=== PATIENT | female | born 1985 | race African-American/Black ===

== ENCOUNTER 2025-02-28 21:07 | Emergency (ER) | payer SELFPAY ==
--- NOTE | ~2025-02-28 | XR_ITS ---
EXAMINATION: XR chest 2V 02/28/2025 21:48 INDICATION: Dizziness PROCEDURE: 2 view chest COMPARISON: No prior studies for comparison. FINDINGS: The lungs are clear. The cardiomediastinal silhouette is within normal limits. There are no pleural effusions. There is no pneumothorax suspected. IMPRESSION: 1: NO ACUTE CARDIOPULMONARY DISEASE. Reviewed, dictated and finalized at location O.
--- NOTE | ~2025-02-28 | CT_ITS ---
EXAMINATION: CT brain wo con DATE: 02/28/2025 21:39 INDICATION: Dizziness. Hypertension. TECHNIQUE: Computed tomography (CT) of the head was performed without intravenous contrast. The dose-length product was 605.33 mGy-cm. COMPARISON: None FINDINGS: Brain parenchymal volume is normal. There are scattered mild periventricular and subcortical white matter changes, most likely related to small vessel ischemic disease (microangiopathy). No ventriculomegaly or midline shift. No acute infarction, hemorrhage, mass or mass effect. Paranasal sinuses and mastoids are pneumatized. No depressed skull fractures. IMPRESSION: 1. No acute intracranial abnormality. Reviewed, dictated and finalized at location O.
[2025-02-28 21:17] VITALS: BP 200/111; PULSE 100; RESP 18; TEMP 36.2; O2SAT 100
--- NOTE | 2025-02-28 21:22 | ECG_ITS ---
Test Date: 2025-02-28 22:26:41 Measurements Intervals [place] Rate: 96 P: 20 CA: 178 QRS: -4 QRSD: 79 T: 23 QT: 351 QTc: 445 Interpretive Statements SINUS RHYTHM POSSIBLE RIGHT VENTRICULAR CONDUCTION DELAY [RSR (QR) IN V1/V2] No previous ECG available for comparison Electronically Signed On 03-01-2025 15:26:03 CDT by Dixon Morse M.D.
--- OUTSIDE RECORDS SUMMARY | 2025-02-28 21:53 | XMS_ITS | Clinical Summary ---
Author Organization [facility] Address [address] [place] [address] Care Team Providers Care Infection Control Manager Name Role Phone Unavailable Primary Care Provider Unavailabl e Source Comments [facility],non-owned Affiliates and Associated Physician Practices is amultiple site organization consisting of ambulatory clinics and hospital sitesin [place], [place], [place] and [place]. This disclosure is being madepursuant to the Care Everywhere program and may not contain all information available regarding this patient. Last updated 18.[facility] Medications * Be aware that medications may not be up to date on this document. Alwaysverify current medications with the patient. No known medications Active Problems No known active problems Social History Tobacco Use Types Packs/Day Years Used Date Smoking Tobacco: Never Smokeless Tobacco: Never Comments No Sex and Gender Information Value Date Recorded Sex Assigned at Not on file Legal Sex Female 1:12 PM CDT Gender Identity Not on file Sexual Orientation Not on file Last Filed Vital Signs Vital Sign Reading Time Taken Comments Blood Pressure 126/80 11/25/2018 10:25 AM CDT Pulse 70 11/25/2018 10:25 AM CDT Temperature 36.9 C (98.5 F) 11/25/2018 10:25 AM CDT Respiratory Rate 17 11/25/2018 10:25 AM CDT Oxygen Saturation 99% 11/25/2018 10:25 AM CDT Inhaled Oxygen Concentration - - Weight 65.8 kg (145 lb) 11/25/2018 10:25 AM CDT Height 170.2 cm (5' 7) 11/25/2018 10:25 AM CDT Body Mass Index 22.71 11/25/2018 10:25 AM CDT Plan of Treatment Health Maintenance Due Date Last Done Comments LIPID TESTING 1984 MAMMOGRAM 1984 HIV SCREENING 1999 HEPATITIS C SCREENING 05/27/2002 DTAP/TDAP/TD VACCINES (1 - Tdap) 2003 HEPATITIS B VACCINE (1 of 3 - 19+ 3-dose series) 2003 HPV VACCINE (1 - 3-dose SCDM series) 2011 COVID-19 VACCINE (2023-2 5 season) 2024 DEPRESSION SCREENING 06/20/2024 INFLUENZA VACCINE (#1) 2025 ZOSTER VACCINE (1 of 2) 2034 HIB VACCINE Aged Out No longer eligi ble based on patient's age to complete this topic MENINGOCOCCAL (Group B) VACC INE SHARED DECISION-MAKING Aged Out No longer eligibl e based on patient's age to complete this topic MENINGOCOCCAL GROUPS A/C/Y/W VACCINE Aged Out No longer eligible b ased on patient's age to complete this topic PNEUMOCOCCAL VACCINE Aged Out No long er eligible based on patient's age to complete this topic
--- OUTSIDE RECORDS SUMMARY | 2025-02-28 21:53 | XMS_ITS | Clinical Summary ---
Author Organization [facility] Address [address] [place] [address] Phone Care Team Providers Care Finance Officer Name Role Phone Unavailable Primary Care Provider Unavailabl e Allergies No known active allergies Medications No known medications Active Problems No known active problems Social History Tobacco Use Types Packs/Day Years Used Date Smoking Tobacco: Never Alcohol Use Standard Drinks/Week Comments Never 0 (1 standard drink = 0.6 oz pur e alcohol) Comments No Sex and Gender Information Value Date Recorded Sex Assigned at Not on file Legal Sex Female 2:26 PM CDT Gender Identity Not on file Sexual Orientation Not on file Last Filed Vital Signs Vital Sign Reading Time Taken Comments Blood Pressure 120/60 11/21/2019 8:59 AM CDT Pulse - - Temperature - - Respiratory Rate - - Oxygen Saturation - - Inhaled Oxygen Concentration - - Weight 83 kg (182 lb 14.4 oz) 11/21/2019 8:59 AM CDT Height 172.7 cm (5' 8) 11/21/2019 8:59 AM CDT Body Mass Index 27.81 11/21/2019 8:59 AM CDT Plan of Treatment Health Maintenance Due Date Last Done Comments DTAP/TDAP/TD VACCINES (1 - Tdap) 2003 HEPATITIS B VACCINES (1 of 3 - 19+ 3-dose series) 05/20 HPV VACCINES (1 - 3-dose SCDM series) 2011 PAP SMEAR 11/18/2022 11/19/2019 BREAST CANCER SCREENING 2024 CERVICAL CANCER SCREENING 11/18/2024 HPV/Cotest (21-29) 11/18/2024 11/19/2019 HPV/Cotest (30-65) 11/18/2024 11/19/2019 INFLUENZA VACCINE (#1) 2025 Procedures Procedure Name Priority Date/Time Associated Diagnosis Comments CERV/VAG CYTO SCREEN PAP W/HPV Routine 11/19/2019 1:03 PM CDT Well woman exam with routine gynecological exam Cervical cancer screening Special screening examination for human papillomavirus (HPV) from Last 3 Months or Most Recently Relevant to Health Maintenance Results * CERV/VAG CYTO SCREEN PAP W/HPV (11/19/2019 1:03 PM CDT) CLINICAL INFORMATION Information not provided 11/22/2019 10:47 AM CDT [facility] LAST MENSTRUAL PERIOD Information not provided 11/22/2019 10:47 AM CDT [facility] PREV PAP: Information not provided 11/22/2019 10:47 AM CDT [facility] PREV BX: Information not provided 11/22/2019 10:47 AM CDT [facility] SOURCE Endocervix 11/22/2019 10:47 AM CDT [facility] ADEQUACY: SEE COMMENT 11/22/2019 10:47 AM CDT [facility] Comment: Satisfactory for evaluation. Endocervical/transformation zone component present. Age and/or menstrual status not provided PAP INTERP Negative for intraepithelial lesion or malignancy. 11/22/2019 10:47 AM CDT [facility] COMMENT This Pap test has been evaluated with computer assisted technology. 11/22/2019 10:47 AM CDT [facility] DIRECTOR OF LAND: SEE COMMENT 2019 10:47 AM CDT [facility] Comment: [place], CT(ASCP) CT screening location: [place] [address] [place] [address] EXPLANATORY NOTE SEE COMMENT 020 10:47 AM CDT [facility] Comment: EXPLANATORY NOTE: The Pap is a screening test for cervical cancer. It is not a diagnostic test and is subject to false negative and false positive results. It is most reliable when a satisfactory sample, regularly obtained, is submitted with relevant clinical findings and history, and when the Pap result is evaluated along with historic and current clinical information. HPV E6/E7 Not Detected Not Detected 11/22/2019 10:47 AM CDT [facility] Comment: This test was performed using the APTIMA HPV Assay ([employer] This assay detects E6/E7 viral messenger RNA (mRNA) from 14 high-risk HPV types (16,18,31,33,35,39,45,51,52,56,58,59,66,68). The analytical performance characteristics of this assay have been determined by [facility]. The modifications have not been cleared or approved by the FDA. This assay has been validated pursuant to the CLIA regulations and is used for clinical purposes. Genital SWAB OF ENDOCERVIX / Unknown Collection / Unknown 11/19/2019 1:03 PM CDT 11/19/2019 3:34 PM CDT Narrative [facility] - 11/22/2019 10:47 AM CDT Performing Organization Information: Site ID: [id number] Name: [facility] Address: [address] [address] Director: Jac Wallace D.O., MPH Site ID: [id number] [facility] Address: [address] [address] Director: Aneta Méndez Vianca Sanchez MD PATHOLOGY/CYTOLOGY TAHIR DIAZ Final Result [facility] [phone] from Last 3 Months or Most Recently Relevant to Health Maintenance Insurance [employer] CHOICE POS II
[2025-02-28 22:20] LABS: Hematocrit 38.0 % (37.0-47.0); Hemoglobin 12.0 g/dL (12.0-15.0); Immature Granulocyte Percent A 0.2 % (0-0.5); Lymphocytes Absolute Auto 1.39 K/mm3 (0.9-3.2); Mean Corpuscular HGB Conc 31.6 g/dl (32-36); Mean Corpuscular Hemoglobin 26.8 pg (26-34); Mean Corpuscular Volume 85.0 fl (80-100); Nucleated Red Blood Cells Absolute Auto 0.000 K/mm3 (0.0-0.012); Nucleated Red Blood Cells Perc 0.0 % (0.0-0.2); Platelet Count Result 227 k/mm3 (150-375); Red Blood Count 4.47 M/mm3 (4.2-5.4); White Blood Count 5.4 K/mm3 (4.5-10.0)
[2025-02-28 22:31] LABS: Alanine Aminotransferase 28 U/L (6-35); Albumin Level 4.0 g/dL (3.5-5.1); Alkaline Phosphatase 60 U/L (38-126); Anion Gap 10 mmol/L (4-12); Aspartate Amino Transferase 40 U/L (14-36); Bilirubin,Total 0.4 mg/dL (0.2-1.3); Blood Urea Nitrogen 24 mg/dL (7-17); Calcium 8.5 mg/dL (8.4-10.2); Carbon Dioxide 21 mmol/L (22-30); Chloride 106 mmol/L (98-107); Estimated CRCL calculation 95 ml/min; Estimated Glomerular Filt Rate > 60; Glucose 145 mg/dL (65-110); Potassium 3.7 mmol/L (3.4-5.0); Sodium 137 mmol/L (137-145); Total Protein 7.9 g/dL (6.3-8.2)
--- NOTE | 2025-02-28 22:48 | ED_ITS ---
HPI - Dizziness General Chief Complaint: Dizziness Stated Complaint: Dizziness, uneasy feeling Time Seen by Provider: 02/28/25 21:22 Source: patient Mode of arrival: EMS Limitations: no limitations History of Present Illness HPI Narrative: This is a 39-year-old female that presents to the emergency department for dizziness. Reports room spinning dizziness. Ongoing over the last couple of hours. No known alleviating or exacerbating factors. Denies vision changes, vomiting, focal numbness or weakness. 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 HEAD: Normocephalic, atraumatic. EYES: PERRLA and EOMI. ENT: Nares clear, no rhinorrhea or epistaxis. Mucous membranes moist. Oropharynx without tonsillar hypertrophy exudate or other lesions. Bilateral TMs pearly sorto non-bulging NECK: Supple. No adenopathy or masses. CHEST: Clear to auscultation. No respiratory distress. No wheezes rales or rhonchi HEART: Regular rate and rhythm. No murmur heard. Normal peripheral pulses. ABDOMEN: Soft, nontender, nondistended, normal active bowel sounds. EXTREMITIES: Normal range of motion. No edema. SKIN: Warm, dry, no rash. NEURO: No focal deficits. Alert and oriented x3. Cranial nerves 2-12 grossly intact PSYCH: Normal mood and affect Course Course Emergency Course: Patient updated on her workup. Reports relief after IV fluids, meclizine and Zofran. Vital Signs Vital signs: Vital Signs Temperature 97.1 F L 02/28/25 21:17 Pulse Rate 100 02/28/25 21:17 Respiratory Rate 18 02/28/25 21:17 Blood Pressure 200/111 H 02/28/25 21:17 Pulse Oximetry 100 02/28/25 21:17 Oxygen Delivery Room Air 02/28/25 21:17 Temperature 97.1 F L 02/28/25 21:17 Pulse Rate 94 03/01/25 00:01 Respiratory Rate 18 03/01/25 00:01 Blood Pressure 154/99 H 03/01/25 00:01 Pulse Oximetry 100 03/01/25 00:01 Oxygen Delivery Room Air 02/28/25 21:17 MDM - Dizziness MDM Narrative Medical decision making narrative: Patient presents the emergency for dizziness. Hypertensive upon arrival, this down trended without intervention. CBC and metabolic panel without concerning findings. EKG without concerning changes. CT brain without acute findings. Chest x-ray without acute cardiopulmonary abnormality. Patient with relief after IV fluids, meclizine and Zofran. She is to follow up with primary provider. She was given warnings to return to the ER Differential Diagnosis Differential diagnosis: Likely adverse reaction to drug, benign paroxysmal positional vertigo, orthostatic hypotension and cerebrovascular accident (Dehydration, electrolyte derangement) Lab Data Attestation: I reviewed the patient's lab results. 02/28/25 22:10 02/28/25 22:10 Labs: Lab Results 02/28/25 Range/Units 22:10 WBC 5.4 (4.5-10.0) K/mm3 RBC 4.47 (4.2-5.4) M/mm3 Hgb 12.0 (12.0-15.0) g/dL Hct 38.0 (37.0-47.0) % MCV 85.0 (80-100) fl MCH 26.8 (26-34) pg MCHC 31.6 L (32-36) g/dl RDW 14.4 (11.5-14.5) % Plt Count 227 (150-375) k/mm3 MPV 11.0 H (7.4-10.4) fl Immature Gran % (Auto) 0.2 (0-0.5) % Neut % (Auto) 64.2 (45.5-73.1) % Lymph % (Auto) 25.9 (18.3-44.2) % [place] % (Auto) 8.4 (2.6-8.5) % Eos % (Auto) 0.9 (0-4.4) % Baso % (Auto) 0.4 (0.2-1.2) % Lymph # (Auto) 1.39 (0.9-3.2) K/mm3 [place] # (Auto) 0.5 (0.1-0.6) K/mm3 Eos # (Auto) 0.1 (0-0.3) K/mm3 Baso # (Auto) 0.0 (0.0-0.1) K/mm3 Abs Immat Gran (auto) 0.01 (0.00-0.031) K/mm3 Absolute Neuts (auto) 3.5 (1.3-6.7) K/mm3 Absolute Nucleated RBC 0.000 (0.0-0.012) K/mm3 Nucleated RBC % 0.0 (0.0-0.2) % Sodium 137 (137-145) mmol/L Potassium 3.7 (3.4-5.0) mmol/L Chloride 106 (98-107) mmol/L Carbon Dioxide 21 L (22-30) mmol/L Anion Gap 10 (4-12) mmol/L BUN 24 H (7-17) mg/dL Creatinine 0.84 (0.7-1.0) mg/dL Estim Creat Clear Calc 95 ml/min Estimated GFR > 60 (59 - ) Glucose 145 H (65-110) mg/dL Calcium 8.5 (8.4-10.2) mg/dL Total Bilirubin 0.4 (0.2-1.3) mg/dL AST 40 H (14-36) U/L ALT 28 (6-35) U/L Alkaline Phosphatase 60 (38-126) U/L Total Protein 7.9 (6.3-8.2) g/dL Albumin 4.0 (3.5-5.1) g/dL Imaging Data Radiologist's impression: ITS Impressions Head CT 02/28/25 21:56 IMPRESSION: 1. No acute intracranial abnormality. Chest X-Ray 02/28/25 21:59 IMPRESSION: 1: NO ACUTE CARDIOPULMONARY DISEASE. ECG Data EKG #1: ECG completion date: 02/28/25 EKG Interpretation: normal rate, sinus rhythm, no ST changes and normal QT Critical Care Time Critical Care Time Critical Care Time: No Discharge Plan Discharge Clinical Impression: Dizziness, Elevated blood pressure reading Patient Disposition: Home Condition: Improved Instructions: Hypertension (ED), Dizziness (ED) Additional Instructions: Return to the emergency department if you experience fever, chest pain, shortness of breath, abdominal pain with nausea and vomiting, weakness, numbness, you pass out, or any other symptoms that are concerning to you. Rest. Remain hydrated. Meclizine as needed for dizziness Follow up with your primary care doctor Patient Language: Kyrgyz Prescriptions: New meclizine 25 mg tablet 25 mg PO BID PRN (Reason: dizziness) Qty: 10 0RF Follow-up/Referrals: UNKNOWN,DOCTOR [Primary Care Provider]
[2025-02-28 23:02] VITALS: BP 153/100; PULSE 95; RESP 18; O2SAT 98
[2025-02-28] MEDS: SODIUM CHLORIDE 0.9% IV 1,000 ML 999 ML IV CONT (23:03)
[2025-02-28] MEDS: MECLIZINE HCL 25 MG TABLET PO (23:03)
[2025-02-28] MEDS: ONDANSETRON INJ 4 MG/2 ML VIAL IV PUSH (23:03)
[2025-03-01 00:01] VITALS: BP 154/99; PULSE 94; RESP 18; O2SAT 100
[2025-03-01 01:24] VITALS: BP 159/99; PULSE 67; RESP 18; O2SAT 99
== END 2025-03-01 01:25 | disposition home or self-care (01) ==
PROVIDERS: Emergency Medicine; Emergency Provider Physician Assistant
DX: R42 Dizziness and giddiness (principal); R03.0 Elevated blood-pressure reading, without diagnosis of hypertension
CPT/HCPCS: 36415; 70450; 71046; 80053; 85025; 93005; 96361; 96374; 99284; A9270; J2405; J7030